=== PATIENT | female | born 1945 | race Caucasian/White ===

== ENCOUNTER 2021-12-27 19:13 | Emergency (ER) | payer MEDICARE, OTHER ==
[~2021-12-27] VITALS: Ht 154.9 cm; Wt 68.5 kg
[~2021-12-27 19:13] MED LIST: AMLO10TA59 PO; ASPI81TA44 PO; ATOR20TA PO; CHOL100045 PO; DIAZ10TA4 PO; LEVO88TA5 PO; LOSA1TAB42 PO; OMEP40CA21 PO; PARO10TA86 PO
--- NOTE | 2021-12-27 19:50 | NUR ---
Patient c/o of severe headache 4-5 hours ago, pain noted on the right neck up to the right side of the head, nonradiating, with a pain scale of 10/10. No signs of N/V/D noted.
[2021-12-27] MEDS ORDERED: diphenhydrAMINE 50 MG/1 ML VIAL IV ONE (20:45)
[2021-12-27] MEDS ORDERED: IV NORMAL SALINE 1000 ML BAG IV ONE (20:45)
[2021-12-27] MEDS ORDERED: METOCLOPRAMIDE HCL 10 MG/2 ML VIAL IV ONE (20:45)
[2021-12-27] MEDS ORDERED: KETOROLAC TROMETHAMINE 30 MG INJ IVP ONE (20:45)
[2021-12-27] MEDS ORDERED: MECLIZINE HCL 25 MG TABLET PO ONE (20:45)
--- NOTE | 2021-12-27 21:03 | NUR ---
Patient came back from CT scan via [facility].
[2021-12-27 21:18] LABS: HEMATOCRIT 39.2 % (31.2-41.9); MEAN CORPUSCULAR HEMOGLOBIN 30.3 uug (24.7-32.8); PLATELET COUNT (AUTO) 215 K/uL (179-408)
[2021-12-27 21:24] LABS: CREATININE 1.3 mg/dL (0.6-1.3); POTASSIUM 3.8 mmol/L (3.5-5.1)
[2021-12-27] MEDS ORDERED: MECLIZINE HCL 25 MG TABLET ONE (21:35)
[2021-12-27] MEDS ORDERED: KETOROLAC TROMETHAMINE 30 MG INJ ONE (21:36)
[2021-12-27] MEDS ORDERED: METOCLOPRAMIDE HCL 10 MG/2 ML VIAL ONE (21:36)
[2021-12-27] MEDS ORDERED: diphenhydrAMINE 50 MG/1 ML VIAL ONE (21:36)
[2021-12-27] MEDS ORDERED: HYDROMORPHONE 1 MG/1 ML DISP.SYRIN IV ONE (23:15)
[2021-12-27] MEDS ORDERED: ONDANSETRON 4 MG/2 ML VIAL IV ONE (23:15)
[2021-12-27] MEDS ORDERED: OXYC-128 PO (23:16)
[2021-12-27] MEDS ORDERED: MECL-159 PO (23:17)
[2021-12-27] MEDS ORDERED: ONDANSETRON 4 MG/2 ML VIAL ONE (23:28)
[2021-12-27] MEDS ORDERED: HYDROMORPHONE 1 MG/1 ML DISP.SYRIN ONE (23:29)
--- NOTE | 2021-12-27 23:40 | NUR ---
Patient discharged to home via private vehicle accompanied by grandson in stable condition, VSJolynn, NAD. Written and verbal after care instructions given. Patient verbalizes understanding of instructions. Stressed follow up or return to ER for worsening s/s.
[2021-12-27 23:48] VITALS: BP 135/68
== END 2021-12-27 23:40 | disposition home or self-care (01) ==
LOC: ER 19:16
DX: R51.9 Headache, unspecified (principal); M54.2 Cervicalgia; R42 Dizziness and giddiness; E03.9 Hypothyroidism, unspecified; I10 Essential (primary) hypertension; F09 Unspecified mental disorder due to known physiological condition; E11.9 Type 2 diabetes mellitus without complications
CPT/HCPCS: 36415; 70450; 80048; 85025; 85651; 93005; 96361; 96374; 96375; 99285; J1170; J1200; J1885; J2405; J2765; A4663; J7030; J8597